=== PATIENT | female | born 1965 | race American Indian/Alaskan Native ===

== ENCOUNTER 2018-12-26 19:42 | Emergency (ER) | payer OTHER ==
[2018-12-26 19:50] VITALS: BP 138/73
--- NOTE | 2018-12-26 20:04 | Emergency Department Report ---
Chief Complaint: Headache Stated Complaint: HEADACHE, SORE THROAT Time Seen by Provider: 12/26/18 20:03 - HPI History of Present Illness: CO HEADACHE AND COUGH ON GENVOYA MSE COMPLETED - Exam Vital Signs: Vital Signs 12/26/18 19:48 Temperature 100.2 F H Pulse Rate 85 Respiratory 16 Rate Blood Pressure 138/73 O2 Sat by Pulse 99 Oximetry MSE screening note: Focused history and physical exam performed. Due to findings the following was ordered: ED Medical Decision Making - Lab Data Result diagrams: 12/26/18 20:11 12/26/18 20:11 ED Disposition for MSE Condition: Stable
[2018-12-26 20:38] LABS: BUN/Creatinine Ratio 16; Blood Urea Nitrogen 13 mg/dL (7-17); Calcium 9.8 mg/dL (8.4-10.2); Hemolysis Index 1
[2018-12-26 20:42] LABS: Hemoglobin 14.8 gm/dl (10.1-14.3); Mean Corpuscular HGB Conc 35 % (30-34); Mean Corpuscular Volume 88 fl (79-97); Platelet Count 226 K/mm3 (140-440); Red Blood Count 4.88 M/mm3 (3.65-5.03)
--- NOTE | 2018-12-26 21:00 | XRay Report ---
PROCEDURE: XR CHEST ROUTINE 2V TECHNIQUE: PA and lateral chest radiographs were obtained. HISTORY: fever COMPARISONS: None. FINDINGS: Patient is rotated to the right Heart: Normal. Mediastinum/Vessels: Normal. Lungs/Pleural space: Lungs are hyperinflated. There are no infiltrates or effusions. Pleural spaces are clear.. Bony thorax: No acute osseous abnormality. IMPRESSION: COPD No obvious acute pulmonary process. This document is electronically signed by Romel Newton MD., December 26 2018 08:58:09 PM ET
[2018-12-26] MEDS ORDERED: IBUPROFEN PO ONE (22:03)
--- NOTE | 2018-12-26 22:08 | Emergency Department Report ---
ED General Adult HPI - General Chief complaint: Headache Stated complaint: HEADACHE, SORE THROAT Time Seen by Provider: 12/26/18 20:03 Source: patient Mode of arrival: Ambulatory Limitations: No Limitations - History of Present Illness Initial comments: 53-year-old -[place] female with a past medical history diabetes and hypertension comes in complaining of headache and sore throat onset today. Patient has not taken anything for pain. -: This morning Location: head Radiation: non-radiation Severity scale (0 -10): 10 Quality: aching, sharp Consistency: constant Improves with: none Worsens with: none Associated Symptoms: other (sore throat) Treatments Prior to Arrival: none - Related Data Home Medications Medication Instructions Recorded Confirmed Last Taken ALBUTEROL Inhaler (OR & NICU) 2 puff INHALATION Q4H PRN 10/24/14 03/07/16 09/29/15 [ProAir HFA Inhaler] metFORMIN [Glucophage] 500 mg PO BID 10/24/14 03/07/16 09/29/15 Previous Rx's Medication Instructions Recorded Last Taken Type Ibuprofen [Motrin 600 MG tab] 600 mg PO Q8H PRN #15 tablet 12/27/18 Unknown Rx Allergies Allergy/AdvReac Type Severity Reaction Status Date / Time Penicillins AdvReac Unknown Verified 09/30/15 03:58 seafood Allergy Swelling Uncoded 12/26/18 19:50 ED Review of Systems ROS: Stated complaint: HEADACHE, SORE THROAT Other details as noted in HPI Comment: All other systems reviewed and negative ENT: throat pain Neurological: headache ED Past Medical Hx - Past Medical History Hx Hypertension: Yes Hx Diabetes: Yes Hx Asthma: Yes Additional medical history: HIGH CHOLESTEROL - Surgical History Past Surgical History?: Yes Additional Surgical History: TUBAL LIGATION - Social History Smoking Status: Never Smoker Substance Use Type: None - Medications Home Medications: Home Medications Medication Instructions Recorded Confirmed Last Taken Type ALBUTEROL Inhaler (OR & NICU) 2 puff INHALATION Q4H PRN 10/24/14 03/07/16 09/29/15 History [ProAir HFA Inhaler] metFORMIN [Glucophage] 500 mg PO BID 10/24/14 03/07/16 09/29/15 History Ibuprofen [Motrin 600 MG tab] 600 mg PO Q8H PRN #15 tablet 12/27/18 Unknown Rx ED Physical Exam - General Limitations: No Limitations General appearance: alert, in no apparent distress - Head Head exam: Present: atraumatic, normocephalic - Eye Eye exam: Present: normal appearance, EOMI - ENT ENT exam: Present: mucous membranes moist - Neck Neck exam: Present: normal inspection, full ROM - Cardiovascular Cardiovascular Exam: Present: regular rate, normal rhythm. Absent: systolic murmur, diastolic murmur, rubs, gallop - GI/Abdominal GI/Abdominal exam: Present: soft, normal bowel sounds - Neurological Exam Neurological exam: Present: alert, oriented X3, normal gait - Psychiatric Psychiatric exam: Present: normal affect, normal mood - Skin Skin exam: Present: warm, dry, intact, normal color. Absent: rash ED Course Vital Signs 12/26/18 19:48 Temperature 100.2 F H Pulse Rate 85 Respiratory 16 Rate Blood Pressure 138/73 O2 Sat by Pulse 99 Oximetry ED Medical Decision Making - Lab Data Result diagrams: 12/26/18 20:11 12/26/18 20:11 - Radiology Data Radiology results: report reviewed Patient: REINA CESAR MR#: [id number] : 1965 Acct:[id number] Age/Sex: 53 / F ADM Date: 12/26/18 Loc: ED Attending Dr: Ordering Physician: ALEX GONZALEZ Date of Service: 12/26/18 Procedure(s): XR chest routine 2V Accession Number(s): [id number] cc: ALEX GONZALEZ Fluoro Time In Minutes: PROCEDURE: XR CHEST ROUTINE 2V TECHNIQUE: PA and lateral chest radiographs were obtained. HISTORY: fever COMPARISONS: None. FINDINGS: Patient is rotated to the right Heart: Normal. Mediastinum/Vessels: Normal. Lungs/Pleural space: Lungs are hyperinflated. There are no infiltrates or effusions. Pleural spaces are clear.. Bony thorax: No acute osseous abnormality. IMPRESSION: COPD No obvious acute pulmonary process. This document is electronically signed by Chava Newton MD., December 26 2018 08:58:09 PM ET Transcribed By: [facility] [place] Dictated By: CHAVA NEWTON Electronically Authenticated By: CHAVA NEWTON Signed Date/Time: 12/26/182099 DD/ 35 TD/TT: 12/26/182036 - Medical Decision Making Patient has been evaluated by this provider in fast track. Patient's given ibuprofen for pain management. Chest x-ray was negative. Rapid strep is negative. Patient is to follow-up with her primary care provider if her symptoms persist or gets worse. Critical care attestation.: If time is entered above; I have spent that time in minutes in the direct care of this critically ill patient, excluding procedure time. ED Disposition Clinical Impression: Headache Qualifiers: Headache type: unspecified Headache chronicity pattern: acute headache Intractability: intractable Qualified Code(s): R51 - Headache Acute tonsillitis Qualifiers: Pharyngitis/tonsillitis etiology: unspecified etiology Qualified Code(s): J03.90 - Acute tonsillitis, unspecified Disposition: TO HOME OR SELFCARE Is pt being admited?: No Does the pt Need Aspirin: No Condition: Stable Instructions: Acute Headache (ED), Tonsillitis (ED) Additional Instructions: Take Motrin as needed increase her fluid intake and follow up with her primary care provider if his symptoms persist or gets worse. Prescriptions: Ibuprofen [Motrin 600 MG tab] 600 mg PO Q8H PRN #15 tablet PRN Reason: Pain Referrals: NANCY PAUL MD [Primary Care Provider] - 3-5 Days Forms: Work/School Release Form(ED)
== END 2018-12-27 00:15 | disposition home or self-care (01) ==
LOC: ED 19:42
DX: J03.90 Acute tonsillitis, unspecified (principal); R51 Headache; I10 Essential (primary) hypertension; E11.9 Type 2 diabetes mellitus without complications; J45.909 Unspecified asthma, uncomplicated; E78.00 Pure hypercholesterolemia, unspecified
CPT/HCPCS: 36415; 71046; 80048; 85027; 87116; 87430